=== PATIENT | male | born 1980 | race Caucasian/White ===

== ENCOUNTER → 2017-02-09 | Outpatient (CLI) | payer BC ==
--- NOTE | ~2017-02-09 | MR34 ---
[facility] A Service of [facility] & [facility] / [facility] RADIOLOGY TEXT RESULTS PATIENT: HANK POWELL LOCATION: [facility] : [birth year] UNIT #: [id number] AGE: [address]: Hank Rene MD SEX: M ORDER DR: [id number] [address] [id number] O MR#: [id number] Acc #: [id number] NAME: HANK POWELL : 1980 SEX: M STUDY DATE/TIME: 02/09/2017 13:47 UNIT: [facility] ROOM: STUDY DESCRIPTION: MR Chest WWo Contrast Attending Physician: Hank Rene M.D. Referring Physician: Hank Rene M.D. Ordering Physician: Hank Rene M.D. Primary Care Physician: Lissette Martinez M.D. MRI CENTER REPORT This report is preliminary unless electronic signature is present. EXAM MRI of the brachial plexus with and without contrast HISTORY 36-year-old male complains of left-sided neck pain radiating into left upper extremity with numbness and tingling in arms, hand and thumb for 3-4 months. No known injury. COMPARISON MRI cervical spine 01/11/2017. FINDINGS Multiplanar, multiecho imaging was performed of the left brachial plexus to include sagittal and coronal imaging post IV contrast. Examination demonstrates normal exiting of the nerve roots. The interscalene space and costoclavicular triangle appear normal without evidence of mass. No evidence of peripheral nerve root compression. Shoulder musculature unremarkable. The visualized vascular structures appear normal. Review of the cervical spine MRI and the accompanying cervical spine images does demonstrate prominent disc herniation in the lateral aspect of the left C5-6 foramen which significantly compromises the exiting nerve root on the left at C5-6. Similar but less pronounced nerve root compression is seen at C6-7. No abnormal enhancement is identified postcontrast. There are a few small lymph nodes, largest measuring up to 2 cm in greatest dimension. These do not appear to have significant mass effect on the brachial plexus or neurovascular bundle. IMPRESSION 1. No primary pathology of the brachial plexus. 2. Review of the patient's MRI of the cervical spine demonstrates a significant lateral disc protrusion or herniation at C5-6 with significant compromise of the left C5-6 foramen and compression of the exiting nerve root. A similar but less pronounced nerve root STS. [facility] A Service of [facility] RADIOLOGY TEXT RESULTS PATIENT: HANK POWELL LOCATION: [facility] : [birth year] UNIT #: [id number] AGE: [address]: Hank Rene MD SEX: M ORDER DR: compression and foraminal narrowing noted at C6-7. Dictated by... Wes Villeda M.D. THIS IS AN ELECTRONICALLY VERIFIED REPORT Wes Villeda M.D. at 02/17/2017 5:12 PM BLANCA/carrillo TD: 02/12/2017 12:22 JOB #: [id number] MRI CENTER REPORT Page 1 of 1
== END | disposition home or self-care (01) ==
LOC: CMRI 02-01 14:00 → SMRI 13:33 → CMRI 14:30
DX: M50.122 Cervical disc disorder at C5-C6 level with radiculopathy (principal); G54.2 Cervical root disorders, not elsewhere classified
CPT/HCPCS: 71552; A9581